=== PATIENT | male | born 1965 | race Caucasian/White ===

== ENCOUNTER 2021-05-25 16:30 | Inpatient (IN) | payer OTHER ==
[~2021-05-25] VITALS: Ht 180.3 cm; Wt 109.3 kg
[2021-05-25] MEDS ORDERED: MORPHINE SULFATE 4 MG/ML CPJ (NOT FOR IM USE) IV ONE (17:00)
[2021-05-25 17:11] LABS: HEMATOCRIT. 42.4 % (42.0-52.0); HEMOGLOBIN. 13.9 g/dL (14.0-18.0); MEAN CORPUSCULAR HEMOGLOBIN 28.8 pg (28.0-32.0); MEAN CORPUSCULAR VOLUME 87.8 fL (80.0-94.0); MEAN PLATELET VOLUME 6.5 fl (7.4-10.4); PLATELET 304 x1000/uL (130-400); RED BLOOD CELL COUNT 4.82 mill/uL (4.7-6.1); RED CELL DISTRIBUTION WIDTH 13.9 % (11.6-14.6)
[2021-05-25 17:12] LABS: BG BASE EXCESS 1.5 mmol/L (-2.0-2.0); BG CARBOXYHEMOGLOBIN 0.5 % (0.5-1.5); BG DEOXYHEMOGLOBIN 4.4 % (0.0-5.0); BG HCO3 ACT 25.3 mmol/L (22.0-26.0); BG METHEMOGLOBIN 0.1 % (0.0-1.5); BG OXYGEN SATURATION 95.6 % (92.0-98.5); BG PCO2 37.6 mmHg (35.0-45.0); BG PH 7.446 (7.350-7.450); BG PO2 77.4 mmHg (75.0-100.0); BG SAMPLE SITE RIGHT RADIAL; BG TOTAL HEMOGLOBIN 16.1 g/dL (12.0-18.0); BG VENT MODE MASK - NRB
[2021-05-25 17:17] LABS: CHLORIDE 102 mEq/L (98-107)
[2021-05-25] MEDS ORDERED: ONDANSETRON HCL 4MG/2ML INJ IV ONE (17:30)
[2021-05-25 19:45] LABS: PLATELET ESTIMATE NORMAL
[2021-05-25] MEDS ORDERED: CEFTRIAXONE 2 G PREMIX 50 ML IV ONE (20:15)
[2021-05-25] MEDS ORDERED: DOXYCYCLINE 100MG in DEXTROSE 5% WATER 100ML IV NR (20:15)
[2021-05-25] MEDS ORDERED: DOXYCYCLINE HYCLATE 100 MG/VIAL IV ONE (20:15)
[2021-05-25] MEDS ORDERED: IOHEXOL-350 100 ML BOTTLE ONE (20:59)
[2021-05-25 23:00] VITALS: BP 139/69
[2021-05-26] MEDS ORDERED: CYAN100096 IM (02:24)
[2021-05-26] MEDS ORDERED: OXYC-662 PO (02:24)
[2021-05-26] MEDS ORDERED: FENT1PAT5 TP (02:24)
[2021-05-26] MEDS ORDERED: FENT1PAT3 TP (02:24)
[2021-05-26] MEDS ORDERED: TEST200V27 IM (02:24)
[2021-05-26] MEDS ORDERED: IBUP-2030 MT (02:24)
[2021-05-26] MEDS ORDERED: MORPHINE SULFATE 2 MG/ML CPJ (NOT FOR IM USE) IV PRN (03:00)
[2021-05-26] MEDS ORDERED: NALOXONE HCL 0.4MG/ML VIAL IV PRN (03:00)
[2021-05-26] MEDS ORDERED: OXYCODONE HCL 5MG TABLET PO PRN (04:45)
[2021-05-26] MEDS ORDERED: IBUPROFEN 800MG TABLET PO PRN (05:00)
[2021-05-26] MEDS: OXYCODONE HCL 5MG TABLET PO PRN ×5 (06:06→22:54)
[2021-05-26 07:57] VITALS: BP 127/74
[2021-05-26] MEDS ORDERED: FENTANYL 75MCG/HR PATCH TOP SCH (09:00)
[2021-05-26] MEDS ORDERED: FENTANYL TP SCH ×2 (09:00)
[2021-05-26 10:05] LABS: HEMATOCRIT 46.5 % (42.0-52.0); HEMOGLOBIN 15.7 g/dL (14.0-18.0); MEAN CORPUSCULAR HEMOGLOBIN 29.7 pg (28.0-32.0); MEAN CORPUSCULAR VOLUME 87.6 fL (80.0-94.0); PLATELET 381 x1000/uL (130-400); RED CELL DISTRIBUTION WIDTH 14.1 % (11.6-14.6)
[2021-05-26 10:31] LABS: CHLORIDE 101 mEq/L (98-107)
[2021-05-26 11:37] VITALS: BP 136/67
[2021-05-26] MEDS ORDERED: IPRATROPIUM/ALBUTEROL 0.5-3(2.5)MG/3ML NEB HHN PRN (12:30)
[2021-05-26] MEDS ORDERED: CEFTRIAXONE 1 G PREMIX 50 ML IV SCH (12:30)
[2021-05-26] MEDS ORDERED: CLONIDINE 0.1MG TABLET PO PRN (12:30)
[2021-05-26] MEDS ORDERED: ONDANSETRON HCL 4MG/2ML INJ IV PRN (12:30)
[2021-05-26] MEDS ORDERED: ACETAMINOPHEN 325MG TABLET PO PRN ×2 (12:30)
[2021-05-26] MEDS ORDERED: LORAZEPAM 0.5MG TABLET PO PRN (12:30)
[2021-05-26 14:35] LABS: CLARITY URINE CLEAR (CLEAR); COLOR URINE YELLOW (YELLOW); KETONES URINE NEGATIVE (NEGATIVE); LEUKOCYTE ESTERASE URINE NEGATIVE (NEGATIVE); NITRITE URINE NEGATIVE (NEGATIVE); OCCULT BLOOD URINE NEGATIVE (NEGATIVE); PH URINE 6.5 (4.5-8.0); PROTEIN URINE TRACE (NEGATIVE); SPECIFIC GRAVITY URINE 1.019 (1.005-1.030); UROBILINOGEN URINE 0.2 E.U./dL (0.2-1.0)
[2021-05-26] MEDS: CEFTRIAXONE 1,000 MG in DEXTROSE 5% WATER 50 ML IV SCH (14:36)
[2021-05-26 14:57] LABS: CANNABINOID URINE SCREEN NEGATIVE (NEGATIVE); PHENCYCLIDINE URINE SCREEN NEGATIVE (NEGATIVE)
[2021-05-26 14:58] LABS: *AMPHETAMINES SCREEN URINE NEGATIVE (NEGATIVE); *BARBITURATES SCREEN URINE NEGATIVE (NEGATIVE); *BENZODIAZEPINES SCREEN URINE NEGATIVE (NEGATIVE); *COCAINE SCREEN URINE NEGATIVE (NEGATIVE); METHADONE URINE SCREEN NEGATIVE (NEGATIVE); OPIATES URINE SCREEN PRESUMTIVE POSITIVE (NEGATIVE)
[2021-05-26] MEDS: AZITHROMYCIN 500 MG in DEXT 5% WATER 250 ML IV SCH (15:28)
[2021-05-26 16:00] VITALS: BP 129/59
[2021-05-26 20:00] VITALS: BP 131/75
[2021-05-27] VITALS: BP 121/68
[2021-05-27] MEDS: OXYCODONE HCL 5MG TABLET PO PRN ×8 (01:25→21:22)
[2021-05-27 04:00] VITALS: BP 109/64
[2021-05-27 06:10] LABS: CHLORIDE 103 mEq/L (98-107)
[2021-05-27 06:17] LABS: BASOPHILS % 0.3 % (0.0-2.0); EOSINOPHILS % 2.2 % (0.0-5.0); HEMATOCRIT. 44.1 % (42.0-52.0); HEMOGLOBIN. 14.7 g/dL (14.0-18.0); LYMPHOCYTES % 13.1 % (20.0-50.0); MEAN CORPUSCULAR HEMOGLOBIN 29.2 pg (28.0-32.0); MEAN CORPUSCULAR VOLUME 87.5 fL (80.0-94.0); MEAN PLATELET VOLUME 6.4 fl (7.4-10.4); MONOCYTES % 6.8 % (2.0-8.0); NEUTROPHILS % 77.6 % (40.0-76.0); PLATELET 386 x1000/uL (130-400); RED BLOOD CELL COUNT 5.03 mill/uL (4.7-6.1); RED CELL DISTRIBUTION WIDTH 13.8 % (11.6-14.6)
[2021-05-27 08:00] VITALS: BP 130/79
[2021-05-27 12:00] VITALS: BP 121/63
[2021-05-27] MEDS ORDERED: AMPH15CA6 PO ×3 (13:19→16:01)
[2021-05-27] MEDS: CEFTRIAXONE 1,000 MG in DEXTROSE 5% WATER 50 ML IV SCH (13:54)
[2021-05-27] MEDS ORDERED: NON FORMULARY PATIENT HOME MED XX SCH (15:15)
[2021-05-27] MEDS: AZITHROMYCIN 500 MG in DEXT 5% WATER 250 ML IV SCH (15:18)
[2021-05-27 16:00] VITALS: BP 131/66
[2021-05-27] MEDS ORDERED: AMPH15CA MT (17:09)
[2021-05-27] MEDS ORDERED: GUAIFENESIN-DM 200MG-20MG/10ML UDC PO PRN (19:15)
[2021-05-27] MEDS ORDERED: RACEPINEPHRINE 2.25% 0.5ML NEB VIAL HHN PRN (19:15)
[2021-05-27 20:00] VITALS: BP 123/78
[2021-05-28] VITALS: BP 122/78
[2021-05-28] MEDS: OXYCODONE HCL 5MG TABLET PO PRN ×8 (00:15→17:47)
[2021-05-28] MEDS: IPRATROPIUM/ALBUTEROL 0.5-3(2.5)MG/3ML NEB HHN SCH ×3 (01:36→13:33)
[2021-05-28 04:00] VITALS: BP 115/58
[2021-05-28 07:48] LABS: HEMATOCRIT. 42.4 % (42.0-52.0); HEMOGLOBIN. 14.5 g/dL (14.0-18.0); MEAN CORPUSCULAR HEMOGLOBIN 29.2 pg (28.0-32.0); MEAN CORPUSCULAR VOLUME 85.6 fL (80.0-94.0); MEAN PLATELET VOLUME 6.2 fl (7.4-10.4); PLATELET 409 x1000/uL (130-400); RED BLOOD CELL COUNT 4.95 mill/uL (4.7-6.1); RED CELL DISTRIBUTION WIDTH 13.8 % (11.6-14.6)
[2021-05-28 08:00] VITALS: BP 130/68
[2021-05-28 08:01] LABS: CHLORIDE 101 mEq/L (98-107)
[2021-05-28] MEDS ORDERED: ACETYLCYSTEINE 100MG/ML 10% VIAL 4ML INH SCH (09:00)
[2021-05-28 12:00] VITALS: BP 126/69
[2021-05-28] MEDS ORDERED: SODIUM CHLORIDE 45ML SPRAY NS PRN (13:00)
[2021-05-28 14:13] LABS: PLATELET ESTIMATE INCREASED
[2021-05-28] MEDS: CEFTRIAXONE 1,000 MG in DEXTROSE 5% WATER 50 ML IV SCH (14:48)
[2021-05-28] MEDS: AZITHROMYCIN 500 MG in DEXT 5% WATER 250 ML IV SCH (15:23)
[2021-05-28 16:00] VITALS: BP 125/71
[2021-05-28] MEDS ORDERED: LEVO750T46 MT (17:30)
[2021-05-28 17:54] VITALS: BP 128/70
== END 2021-05-28 18:31 | disposition home or self-care (01) | DRG 871 ==
LOC: ER 16:30 → EDBEDREQ 21:40 → EDBEDREQTM 21:40 → ENRESERV 22:05 → 6WST 23:12
PROVIDERS: ADMIT Internal Medicine; ATTEND Internal Medicine
DX: A41.9 Sepsis, unspecified organism (principal); J96.01 Acute respiratory failure with hypoxia; J18.9 Pneumonia, unspecified organism; G89.4 Chronic pain syndrome; Z96.659 Presence of unspecified artificial knee joint; F90.9 Attention-deficit hyperactivity disorder, unspecified type; I25.10 Atherosclerotic heart disease of native coronary artery without angina pectoris; R13.10 Dysphagia, unspecified; Z20.822 Contact with and (suspected) exposure to COVID-19; C14.0 Malignant neoplasm of pharynx, unspecified; R07.89 Other chest pain; R79.89 Other specified abnormal findings of blood chemistry; Z87.891 Personal history of nicotine dependence; Z85.89 Personal history of malignant neoplasm of other organs and systems; Z86.16 Personal history of COVID-19; Z85.819 Personal history of malignant neoplasm of unspecified site of lip, oral cavity, and pharynx; Z79.899 Other long term (current) drug therapy; Z92.21 Personal history of antineoplastic chemotherapy; Z92.3 Personal history of irradiation
CPT/HCPCS: 36415; 36600; 71045; 71250; 80048; 80053; 80305; 81003; 82375; 82805; 83605; 83880; 84145; 84484; 85025; 85027; 85379; 86850; 86900; 87070; 87426; 87449; 87804; 93005; 93306; 93970; 99285; J0456; J0696; J2270; J2405; J3490; J7060; J7608; Q9967